=== PATIENT | female | born 1940 | race Caucasian/White ===

== ENCOUNTER → 2016-03-19 | Outpatient (CLI) | payer MEDICARE, OTHER ==
[~2016-03-19] MED LIST: CALC-649; CELEBREX; FERR27TA; GLUCOSAMINE; HYDR25TA6; METF-382; OMEP20CA16; VITAMIN D
--- NOTE | 2016-03-19 17:13 | RADRPT ---
PROCEDURE: XR Femur. CLINICAL INDICATION: Left leg pain. TECHNIQUE: AP and lateral views of the left femur were performed. COMPARISON: None. FINDINGS: There is no fracture or dislocation. The soft tissues are normal. There are degenerative changes of the left hip with osteophytes and joint space narrowing. There ar e degenerative changes of the left knee with osteophytes noted. There is chondrocalcinosis of the k nee, likely degenerative in nature. There is no lytic or blastic lesion. There is no radiopaque foreign body. IMPRESSION: 1. 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 2. Mild degenerative changes of the left knee. 3. Chondrocalcinosis of the knee, likely degenerative in nature. 4. No acute abnormality. RPTAT: QQ .Rafael Arias MD, Date Time Electronically viewed and signed by .Rafael Arias MD, on 03/19/2016 17:13 .R/
--- NOTE | 2016-03-19 19:54 | HKNOTE ---
DATE OF SERVICE: 03/19/2016 The patient has recurrence of trochanteric bursitis of her left hip. She also now has a new problem and that is the point of pain and tenderness over the lateral aspect of her left femur slightly ant erior to the alignment of the greater trochanter, which has been present now for about 2 months. The patient walks every day, she can walk the length of "5 [address]." The patient's pain in her left hip and femur used to be present only with walking. Now the pain stays constantly. She ge ts pain every day. She limps when she is in pain. She has a long history of problems with her lowe r back. She has had MRIs with Dr. Handley and multiple lumbar epidural injections. She also has d egenerative osteoarthritis of both knees and feels she will eventually need to have knee replacement surgery. PHYSICAL EXAMINATION GENERAL: The patient is a fit-looking 75-year-old female. VITAL SIGNS: Height 5 feet 1, weight 178 pounds. Blood pressure 125/55, temperature 97.9. GAIT: The patient walks without a walking aid. She is quite markedly overweight. EXTREMITIES: Examination of the left hip, marked tenderness over the greater trochanter. Tender ov er the anteromedial aspect of the left leg at about the midpoint of the left femur. NEUROLOGIC: Lower extremities are normal. Examination of the left hips, both hips have full range of motion without pain. IMAGING: Plain x-rays of her pelvis and left hips obtained today show minimal degenerative changes in the left hip. Imaging of her left femur was also obtained. No focal lesions were noted in the shaft of the femur in the area where she is complaining of pain. DIAGNOSES 1. Trochanteric bursitis. 2. Localized femoral pain (rule out underlying pathology). MANAGEMENT: Under sterile conditions, given injection of 4 mL of Kenalog and 10 mL of 2% lidocaine into the left trochanteric bursa. She will be seen again in 3 weeks' time for reevaluation if she continues to complain of pain. At t his point along the femur, we will need to get a bone scan to rule out any underlying pathology in t he bone. Dictated By: ERIKA MARMOLEJO/TEODORA Conf#: [id number] DID#: [id number]
== END | disposition home or self-care (01) ==
LOC: HKI 13:40
DX: M70.62 Trochanteric bursitis, left hip (principal); M17.0 Bilateral primary osteoarthritis of knee; M79.652 Pain in left thigh
CPT/HCPCS: 20610; 73552; G0463; J3301

== ENCOUNTER → 2016-04-09 | Outpatient (CLI) | payer MEDICARE, OTHER ==
--- NOTE | 2016-04-09 22:47 | HKNOTE ---
DATE OF SERVICE: 04/09/2016 MAIN COMPLAINT: Pain in the left buttock radiating down her left leg as far as the foot. The pain has been present now for a couple of months. The pain is mainly in the anterior femur now and shoot s down her leg to the foot. The pain to last for 1 to 2 hours. She has chronic low back pain. PHYSICAL EXAMINATION: VITAL SIGNS: Height 5 feet 1, weight 178 pounds. Blood pressure 135/60, temperature 97.8. The patient has a marked antalgic gait. There is no tenderness over the left greater trochanter. N ote that I injected the left trochanter for bursitis last week. She has some tenderness over the th igh, which is a pinpoint single spot. Today, she has a large area of tender spots all along the herman otibial band. IMAGING: The patient's MRI was reviewed. She does not have any pathology that appears to need surg hilario at this time. DIAGNOSIS: Sciatica. MANAGEMENT: The patient is being referred to Dr. Richardson for a lumbar epidural cortisone injection t o see what that would do to her symptoms. Dictated By: ERIKA MARMOLEJO/NTS Conf#: [id number] DID#: [id number]
== END | disposition home or self-care (01) ==
LOC: HKI 13:29
DX: M54.30 Sciatica, unspecified side (principal)
CPT/HCPCS: G0463

== ENCOUNTER → 2016-12-31 | Outpatient (CLI) | payer MEDICARE, OTHER ==
[~2016-12-31] MED LIST changes: +IOHEXOL 100 ML ONE; +IOHEXOL 350MG/ML 50 ML BTL ONE; -METF-382; +METF500T4; +SOD CHLORIDE 0.9% 100 ML ONE
--- NOTE | 2017-01-01 04:54 | HKNOTE ---
DATE OF SERVICE: 12/31/2016 MAIN COMPLAINT: Pain in both knees, worse on the left side. HISTORY OF MAIN COMPLAINT: The patient is a 76-year-old female who complains of pain in both knees, worse on the left side. In addition, the left knee swells, locks and feels unstable. Patient is well known to me. She had previously undergone an operative arthroscopy on the right kne e performed by me on 06/05/2010. She had also undergone a left knee arthroscopy at a previous date. The patient states "I have several problems at this time and I just want to be sure my knees is not the worse of it". She states that she needs to have surgery on her right foot. Dr. Richardson found a "cyst on my spine" and wants to treat her with epidural injections. She recently developed shingles and it is very painful. PRESENT COMPLAINTS: As noted above, the left knee swells, locks and feels unstable. Pain is aggrav ated by walking and varies between moderate to severe. She takes trazodone and [place] for the pain. She does limp all the time. Her right leg feels longer than the left leg. She does not have any s hoe lifts. She can clip her toenails and tie her shoelaces. PAST ORTHOPEDIC HISTORY: Bilateral knee arthroscopies performed by Dr. Rivas several years ago . PRIOR CORTISONE INTAKE: Yes, into her knees. ALCOHOL INTAKE: "Very seldom". BLOOD TESTS FOR ARTHRITIS: None. PRIOR INJURIES TO HIPS OR KNEES: None. WORK STATUS: Patient is retired. PAST MEDICAL HISTORY: 1. Diabetes. 2. Hypertension. 3. Acid reflux. PAST SURGICAL HISTORY: 1. Hernia repair. 2. Carpal tunnel release. 3. Left knee arthroscopy. 4. Right knee arthroscopy. DRUG ALLERGIES: 1. LYRICA. 2. . MEDICATIONS: 1. Metformin 500 mg twice a day. 2. Hydrochlorothiazide 12.5 mg daily. 3. Trazodone 50 mg daily. 4. [place] 10/325 taken when needed. 5. Omeprazole 20 mg daily. 6. Losartan 25 mg daily. 7. Atorvastatin 5 mg daily. FAMILY HISTORY: Father at 82 of a stroke. Mother at 97 of a stroke. SYSTEMS REVIEW: Excess urination, diabetes, swelling of the ankles, history of peptic ulcer, otherw ise negative. HABITS: Patient smoked 1 pack of cigarettes a day for 40 years. She quit 10 years ago. Alcohol in take "seldom". DISABILITY EXAMINER: Dr. Unique Andrade [id number] [address]. PHYSICAL EXAMINATION GENERAL: Fragile looking 76-year-old female. VITAL SIGNS: Height 5 feet 1, weight 165 pounds. Blood pressure 145/65, temperature 99.7. GAIT: Patient walks without a walking aid. Her gait is normal. HIPS: Both hips have full range of motion without pain. RIGHT KNEE: The right knee shows normal alignment. Active and passive extension is 0 degrees. Activ e and passive flexion is 135 degrees. The medial and lateral collateral ligaments and cruciate ligam ents are intact. Derik test is negative. There is no effusion, tenderness, scarring, crepitus, or cysts. The patella tracks normally. There is no tenderness on the articular surface of the patella o r in the patellar groove. The Q angle is normal. LEFT KNEE: The left knee shows normal alignment. Active and passive extension is 0 degrees. Active and passive flexion is 135 degrees. The medial and lateral collateral ligaments and cruciate ligamen ts are intact. Derik test is negative. There is no tenderness, scarring, crepitus, or cysts. The p atella tracks normally. There is no tenderness on the articular surface of the patella or in the pat ellar groove. The Q angle is normal. Pain on forced flexion. 1+ effusion, tender along the medial joint line. IMAGING: Plain x-rays of both knees obtained today at the [facility] were review ed. These show mild narrowing of the medial joint space of both knees, but very little else by way of arthritic change. DIAGNOSES: 1. Degenerative osteoarthritis of both knees. 2. Internal derangement of the left knee. 3. Diabetes. 4. Acid reflux. MANAGEMENT: The patient is being sent for an MRI scan of the left knee and she will be called with the results. Further treatment will depend upon the findings. Dictated By: ERIKA MARMOLEJO/TEODORA Conf#: [id number] DID#: [id number]
== END | disposition home or self-care (01) ==
LOC: HKI 10:32
DX: M17.0 Bilateral primary osteoarthritis of knee (principal); M23.92 Unspecified internal derangement of left knee; E11.9 Type 2 diabetes mellitus without complications; K21.9 Gastro-esophageal reflux disease without esophagitis; Z96.653 Presence of artificial knee joint, bilateral; Z79.84 Long term (current) use of oral hypoglycemic drugs
CPT/HCPCS: G0463; Q9967

== ENCOUNTER → 2017-02-13 | Outpatient (CLI) | payer MEDICARE, OTHER ==
[~2017-02-13] MED LIST changes: -IOHEXOL 100 ML ONE; -IOHEXOL 350MG/ML 50 ML BTL ONE; -SOD CHLORIDE 0.9% 100 ML ONE
== END | disposition home or self-care (01) ==
LOC: HKI 09:15
DX: S83.207D Unspecified tear of unspecified meniscus, current injury, left knee, subsequent encounter (principal)
CPT/HCPCS: 20610; G0463

== ENCOUNTER → 2017-02-14 | Outpatient (CLI) | END | disposition home or self-care (01) ==

== ENCOUNTER 2017-04-01 05:35 | Day surgery (SDC) | END 2017-04-01 10:17 | disposition home or self-care (01) ==

== ENCOUNTER → 2017-04-11 | Outpatient (CLI) | END | disposition home or self-care (01) ==

== ENCOUNTER 2017-10-21 08:32 | Inpatient (IN) | END 2017-10-23 10:47 | disposition home or self-care (01) | DRG 520 ==

== ENCOUNTER → 2017-11-17 | Outpatient (CLI) | END | disposition home or self-care (01) ==